=== PATIENT | female | born 1995 | race Caucasian/White ===

== ENCOUNTER 2017-06-28 16:18 | Outpatient (CLI) | payer OTHER ==
[2015-05-25 17:55] VITALS: BP 116/62
== END 2017-06-28 16:20 ==
LOC: LABRHC 16:18
PROVIDERS: ATTEND Family Medicine
DX: J02.9 Acute pharyngitis, unspecified (principal)
CPT/HCPCS: 87070

== ENCOUNTER 2018-01-22 18:12 | Emergency (ER) | payer OTHER ==
--- NOTE | 2018-01-22 18:25 | ED Physician Documentation ---
Lower Extremity Injury - HISTORIAN Historian: patient - HPI Stated Complaint: Left Ankle Injury s/p Fall Chief Complaint: Lower Extremity Injury Additional Information: Patient tripped coming out of [place] and the left leg buckled underneath her. She was able to get up but started to ahve more pain as the day went on. Onset: hours (7 hours) Where: other ([employer]) Severity: moderate Context: fall, twist Associated Symptoms:: numbness distally, swelling Modifying Factors:: pain on movement - ROS CONST: no problems. denies: fever, chills - PAST HX Past History: none Immunizations: tetanus (Adacel 1 year ago), UTD Allergies/Adverse Reactions: Allergies Allergy/AdvReac Type Severity Reaction Status Date / Time Penicillins Allergy Intermediate Rash Verified 01/22/18 18:29 Home Medications: Ambulatory Orders Medication Instructions Recorded NK 05/25/15 - SOCIAL HX Smoking History: non-smoker Alcohol Use: none Drug Use: none - FAMILY HX Family History: no significant history - VITAL SIGNS Vital Signs: Vital Signs Temp Pulse Resp BP Pulse Ox 98.7 F 60 16 118/65 99 01/22/18 19:40 01/22/18 19:40 01/22/18 19:40 01/22/18 19:40 01/22/18 19:40 - REVIEWED ASSESSMENTS Nursing Assessment Reviewed: Yes Vitals Reviewed: Yes ED Results Lab/Radiology - Radiology Radiology Impressions: 3 views left ankle Clinical history: Left ankle pain Findings: No acute fracture or dislocation is identified. The alignment is normal. Soft tissues are unremarkable. Impression: Negative - Orders Orders: ED Orders Category Date Time Status Air Splint 1T Care 01/22/18 19:37 Active ANKLE 3 VIEWS OR MORE [RAD] Stat Exams 01/22/18 Completed Lower Extremities Injury Phy - Physical Exam General Appearance: no acute distress Legs: bilateral: non-tender, normal inspection, normal range of motion, no evidence of injury Knees: right: normal inspection, no evidence of injury, bilateral: non-tender, normal range of motion, soft tissue tenderness (abrasion tot he knee) Ankle: right: non-tender, normal inspection, normal range of motion, no evidence of injury, left: ecchymosis (mild lateral ankle), pain (left medial and lateral ankle), N/A: deformity (none), joint effusion (none), limited range of motion (none) Foot: bilateral foot: non-tender, normal inspection, normal range of motion, no evidence of injury Gait: limited by pain Neuro/Vascular/Tendon: no vascular compromise, motor nml, sensation nml Neck/Back: nml inspection, non-tender Resp/CVS: chest non-tender, breath sounds nml, heart sounds nml, no resp. distress, lungs clear Discharge Clincal Impression: Left ankle sprain Qualifiers: Encounter type: initial encounter Involved ligament of ankle: unspecified ligament Qualified Code(s): S93.402A - Sprain of unspecified ligament of left ankle, initial encounter Referrals: Primary Doctor,No [REFERRING] - 2 Days Additional Instructions: Wear air cast splint as needed for the next 2-3 days. Keep your foot elevated with ice for the next 24 hours. Take tylenol or aleve to help with pain. Condition: Stable Disposition: 01 HOME, SELF-CARE Decision to Admit: NO Date of Decison to Admit: 01/22/18 Decision Time: 19:31
[2018-01-22 20:04] VITALS: BP 118/65
--- NOTE | 2018-01-22 20:14 | Diagnostic Imaging Report ---
DEE DEE WALDROP [facility] [address] [facility].[address] [id number] Report Submission Date: Jan 22, 2018 7:30:12 PM CDT Patient Study Name: PEDRO MUSTAFA Date: Jan 22, 2018 6:46:38 PM CDT Modality Type: DX Gender: F Description: LOWER EXTREMITY : 95 Institution: [facility] Physician: DEE DEE WALDROP 3 views left ankle Clinical history: Left ankle pain Findings: No acute fracture or dislocation is identified. The alignment is normal. Soft tissues are unremarkable. Impression: Negative Electronically signed on Jan 22, 2018 7:30:12 PM CDT by: Nahid CISNEROS
== END 2018-01-22 19:50 | disposition home or self-care (01) ==
LOC: ED 18:12
DX: S93.402A Sprain of unspecified ligament of left ankle, initial encounter (principal); W19.XXXA Unspecified fall, initial encounter; Y92.513 Shop (commercial) as the place of occurrence of the external cause; Y93.01 Activity, walking, marching and hiking; Y99.9 Unspecified external cause status
CPT/HCPCS: 73610; 99282

== ENCOUNTER 2018-08-28 18:05 | Emergency (ER) | payer OTHER ==
[2018-08-28] MEDS ORDERED: KETOROLAC TROMETHAMINE 30 MG/1ML VIAL IV ONE (18:20)
--- NOTE | 2018-08-28 18:25 | ED Physician Documentation ---
Abdominal Pain - HISTORIAN Historian: patient - HPI Stated Complaint: lower abdominal pain Chief Complaint: Abdominal Pain Additonal Information: Patient presents to ED with sudden onset lower abdominal pain and bilateral flank pain. Patient reports she just finished her period and had some dark brown discharge today. She denies dysuria, or other urinary symptoms. Onset: hours (1) Duration: sudden-onset Timing: still present Context: denies: out of country travel Severity: mild Quality: pain, cramping, sharp, stabbing Associated Symptoms: denies: fever, chills, nausea, vomiting Exacerbated by: nothing Relieved by: nothing - ROS CONST: no problems GI/: none CVS/RESP: none EYES/ENT: none MS/SKIN/LYMPH: none NEURO/PSYCH: none - SOCIAL HX Smoking History: non-smoker Alcohol Use: none Drug Use: none - FAMILY HX Family History: none - PAST HX Past History: none Ischemic Bowel Risk Factors: none Other History: none Surgeries/Procedures: cholecystectomy Home Medications: Ambulatory Orders Medication Instructions Recorded Bupropion HCl [Wellbutrin Xl] 150 mg PO DAILY 08/28/18 Diazepam [Valium] 10 mg PO BID PRN 08/28/18 Allergies/Adverse Reactions: Allergies Allergy/AdvReac Type Severity Reaction Status Date / Time Penicillins Allergy Intermediate Rash Verified 08/28/18 18:39 - VITAL SIGNS Vital Signs: Vital Signs Temp Pulse Resp BP Pulse Ox 98.4 F 91 H 18 104/79 96 08/28/18 18:17 08/28/18 18:17 08/28/18 18:17 08/28/18 18:17 08/28/18 18:17 - REVIEWED ASSESSMENTS Nursing Assessment Reviewed: Yes Vitals Reviewed: Yes Progress - Progress Progress: [address] and lab results which are completely normal. Patient reports considerable amount of stress. She also states she ran out of Valium about 2 weeks ago. She has been taking Valium daily for about a year. ED Results Lab/Radiology - Lab Results Lab Results: UA - negative for infection, 2+ blood CBC, CMP - WNL - Radiology Radiology Impressions: Report Submission Date: Aug 28, 2018 7:23:11 PM CDT Patient Study Name: PEDRO MUSTAFA Date: Aug 28, 2018 7:01:20 PM CDT Modality Type: CT\SR Gender: F Description: CT ABD PELVIS W/ CON : 95 Institution: [facility] Physician: ENRIQUETA RITTER CT abdomen and pelvis with intravenous contrast History: Right lower quadrant pain Technique: Images through the abdomen and pelvis were obtained following intravenous contrast administration. Findings: The lung bases are clear. The patient is status post cholecystectomy. The spleen, liver, pancreas, kidneys and adrenal glands are normal. There is no hydronephrosis, hydroureter, free intraperitoneal air or fluid. There is no bowel obstruction. The appendix is normal. Uterus is grossly normal. The aorta enhances normally. Impression: Normal. Electronically signed on Aug 28, 2018 7:23:11 PM CDT by: Rocky Cao - Orders Orders: ED Orders Category Date Time Status Place IV Lock 1T Care 08/28/18 18:[address] ABD & PELVIS W/ CON Stat Exams 08/28/18 Taken CBC/PLATELET/DIFF Routine Lab 08/28/18 18:42 Received CMP Routine Lab 08/28/18 18:42 Received UA W/MICRO IF INDICATED Routine Lab 08/28/18 18:09 Ordered 0.9 % Sodium Chloride [Normal Saline] 1,000 ml Med 08/28/18 18:37 Discontinued IV .STK-MED 0.9 % Sodium Chloride [Normal Saline] 1,000 ml Med 08/28/18 18:38 Discontinued IV Q1H Ketorolac Tromethamine [Toradol] Med 08/28/18 18:20 Discontinued 30 mg IV NOW ONE Abdominal Pain Physical Exam - Physical Exam General Appearance: no acute distress, alert EENT: ALEJANDRINA NECK: supple RESPIRATORY: no resp distress, chest non-tender, breath sounds normal CVS: reg rate & rhythm, heart sounds normal ABDOMEN: soft, tenderness (RLQ), decreased BS BACK: CVA tenderness (R), CVA tenderness (L) SKIN: warm/dry EXTREMITIES: non-tender NEURO: oriented X3 Vital Signs: Vital Signs Temp Pulse Resp BP Pulse Ox 98.4 F 91 H 18 104/79 96 08/28/18 18:17 08/28/18 18:17 08/28/18 18:17 08/28/18 18:17 08/28/18 18:17 Discharge Clincal Impression: Abdominal pain Qualifiers: Abdominal location: lower abdomen, unspecified Qualified Code(s): R10.30 - Lower abdominal pain, unspecified Referrals: Barbara Merino [facility]NER [Primary Care Provider] - 2 Days Additional Instructions: 1. Tylenol and/or Ibuprofen as needed for pain 2. Exercise daily. This will also help with anxiety 3. Follow up with PCP as soon as possible to discuss Valium continuation or other alternatives 4. Return to ER for new or worsening symptoms. Comments: Abdominal pain is likely stress induced compounded by Valium withdrawal. Condition: Stable Disposition: 01 HOME, SELF-CARE Decision to Admit: NO Date of Decison to Admit: 08/28/18 Decision Time: 19:58
[2018-08-28 18:30] VITALS: BP 104/79
[2018-08-28] MEDS ORDERED: 0.9 % SODIUM CHLORIDE 1,000 ML IV ONE ×2 (18:37→18:38)
--- NOTE | 2018-08-29 06:10 | Diagnostic Imaging Report ---
ENRIQUETA RITTER [facility] [address] [facility] [address] [place] [address]. [id number] Report Submission Date: Aug 28, 2018 7:23:11 PM CDT Patient Study Name: PEDRO MUSTAFA Date: Aug 28, 2018 7:01:20 PM CDT Modality Type: CT\SR Gender: F Description: CT ABD PELVIS W/ CON : 95 Institution: [facility] Physician: ENRIQUETA RITTER CT abdomen and pelvis with intravenous contrast History: Right lower quadrant pain Technique: Images through the abdomen and pelvis were obtained following intravenous contrast administration. Findings: The lung bases are clear. The patient is status post cholecystectomy. The spleen, liver, pancreas, kidneys and adrenal glands are normal. There is no hydronephrosis, hydroureter, free intraperitoneal air or fluid. There is no bowel obstruction. The appendix is normal. Uterus is grossly normal. The aorta enhances normally. Impression: Normal. Electronically signed on Aug 28, 2018 7:23:11 PM CDT by: Rocky CISNEROS
[2018-08-29 07:38] LABS: APPEARANCE,URINE CLEAR (CLEAR); COLOR,URINE YELLOW (YELLOW); OCCULT BLOOD,URINE 2+ (NEGATIVE)
[2018-08-29 07:39] LABS: BASOPHILS % 0.5 (0.0-1.5); EOSINOPHILS % 2.1 % (0.0-6.8); MEAN CORPUSCULAR HEMOGLOBIN 26.5 pg (28.0-34.0); MONOCYTES % 3.8 % (0.0-11.0); NEUTROPHILS # 5.8 # k/uL (1.4-7.7)
[2018-08-29 07:40] LABS: eGFR (Non-African) > 60
[2018-08-29 18:13] LABS: URINE HCG NEGATIVE (NEGATIVE)
== END 2018-08-28 20:22 | disposition home or self-care (01) ==
LOC: ED 18:05
DX: R10.30 Lower abdominal pain, unspecified (principal)
CPT/HCPCS: 36415; 74177; 80053; 81002; 81025; 85025; 96374; 99283; 99284; J1885; J7030; Q9967; S1016